=== PATIENT | male | born 1965 | race Two or more races ===

== ENCOUNTER 2019-11-06 05:39 | Outpatient (CLI) | payer BC, OTHER ==
--- NOTE | 2019-11-06 17:52 | EKG ---
Test Reason : Blood Pressure : / mmHG Vent. Rate : 068 BPM Atrial Rate : 068 BPM P-R Int : 162 ms QRS Dur : 092 ms QT Int : 392 ms P-R-T Axes : 050 000 023 degrees QTc Int : 416 ms Normal sinus rhythm Normal ECG No previous ECGs available Confirmed by KAYE LERNER, DR. Nicole ([id number]) on 11/06/2019 5:51:57 PM Referred By: [email or web address] Confirmed By:DR. Bonnie RESTREPO MD
[2019-11-07 13:11] LABS: SARS-CoV-2 MS2 Positive; SARS-CoV-2 N Gene Negative; SARS-CoV-2 S Gene Negative; SARS-CoV-2 orf1ab Negative
== END 2019-11-06 05:40 | disposition home or self-care (01) ==
LOC: LABBT 05:39
PROVIDERS: ATTEND Otolaryngology Plastic Surgery within the Head & Neck
DX: Z01.818 Encounter for other preprocedural examination (principal); Z11.59 Encounter for screening for other viral diseases; J33.9 Nasal polyp, unspecified; J32.0 Chronic maxillary sinusitis; J32.1 Chronic frontal sinusitis; J32.2 Chronic ethmoidal sinusitis; J32.3 Chronic sphenoidal sinusitis; J34.3 Hypertrophy of nasal turbinates; J30.89 Other allergic rhinitis
CPT/HCPCS: 87635; 93005; 93010; U0003